=== PATIENT | male | born 1950 | race Caucasian/White ===

== ENCOUNTER 2017-07-10 07:39 | Emergency (ER) | payer BC ==
--- NOTE | 2017-07-10 08:14 | UC ---
[facility] HPI - HPI Summary HPI Summary: 66 yo WM c/o right mmaxillary sinus pain after tooth extraction 4 days ago, states the dentist did not give him any antibiotics, just Tylenol and ibuprofen - History of Current Complaint Chief Complaint: UCDentalProblem Stated Complaint: DENTAL PAIN Time Seen by Provider: 07/10/17 07:59 Hx Obtained From: Patient Onset/Duration: Lasting Days Severity: Moderate Pain Intensity: 2 Aggravating Factor(s): Nothing Alleviating Factor(s): Nothing - Allergies/Home Medications Allergies/Adverse Reactions: Allergies Allergy/AdvReac Type Severity Reaction Status Date / Time No Known Allergies Allergy Verified 07/10/17 07:52 Home Medications: Home Medications Aspirin [Aspirin EC] 81 mg PO DAILY 07/10/17 [History Confirmed 07/10/17] Atorvastatin* [Lipitor 40 MG*] 40 mg PO DAILY 07/10/17 [History Confirmed ] Benazepril HCl 40 mg PO DAILY 07/10/17 [History Confirmed 07/10/17] Cholecalciferol (Vitamin D3) [Vitamin D3] 2,000 unit PO BID 07/10/17 [History Confirmed 07/10/17] Magnesium Oxide [Magnesium] 500 mg PO BID 07/10/17 [History Confirmed 07/10/17] Metoprolol Tartrate TAB* [Lopressor TAB*] 100 mg PO DAILY 07/10/17 [History Confirmed 07/10/17] Omeprazole CAP* [Prilosec CAP* 20 MG] 20 mg PO DAILY 07/10/17 [History Confirmed 07/10/17] amLODIPine TAB* [Norvasc 5 mg TAB*] 10 mg PO DAILY 07/10/17 [History Confirmed 07/10/17] metFORMIN* [Glucophage 500 MG TAB *] 750 mg PO DAILY 07/10/17 [History Confirmed 07/10/17] PMH/Surg Hx/FS Hx/Imm Hx Previously Healthy: Yes - Surgical History Surgical History: Yes - Social History Alcohol Use: None Substance Use Type: None Smoking Status (MU): Never Smoked Tobacco Review of Systems Constitutional: Negative Skin: Negative Eyes: Negative ENT: Dental Pain Respiratory: Negative Cardiovascular: Negative Gastrointestinal: Negative Genitourinary: Negative Motor: Negative Neurovascular: Negative Musculoskeletal: Negative Neurological: Negative Psychological: Negative All Other Systems Reviewed And Are Negative: Yes Physical Exam Triage Information Reviewed: Yes Appearance: Well-Appearing Vital Signs: Initial Vital Signs Temp 36.6 C 07/10/17 07:48 Pulse 78 07/10/17 07:48 Resp 18 07/10/17 07:48 BP 114/76 07/10/17 07:48 Pulse Ox 100 07/10/17 07:48 Eye Exam: Normal ENT Exam: Normal ENT: Positive: Sinus tenderness - TTP in right maxillary sinus, Other - poor dentition, diffuse dental caries, area of tooth #2 extraction healing well, no d /c Dental Exam: Normal Neck exam: Normal Neck: Positive: 1 Respiratory Exam: Normal Cardiovascular Exam: Normal Abdominal Exam: Normal Musculoskeletal Exam: Normal Neurological Exam: Normal Psychological Exam: Normal Skin Exam: Normal Dental Complaint Course/Dx - Course Course Of Treatment: pt has multiple caries, extensive periodontal disease with recent tooth extraction, will cover for insidious occult right maxillary sinus infection with clindamycin and better pain control with percocet. Advised dental f/u shreyas on the abx - Differential Dx/Diagnosis Provider Diagnoses: periodontal abscess. dental caries Discharge - Sign-Out/Discharge Documenting (check all that apply): Discharge - Discharge Plan Condition: Stable Disposition: HOME Prescriptions: Clindamycin HCl 300 mg PO TID 10 Days #30 capsule oxyCODONE/Acetamin 5/325 MG* [Percocet 5/325 TAB*] 1 tab PO Q6H PRN 3 Days #12 tab MDD 4 PRN Reason: Pain Referrals: Josey Bradshaw MD [Primary Care Provider] - Additional Instructions: please follow up with your dentist next week - Billing Disposition and Condition Condition: STABLE Disposition: HOME
== END 2017-07-10 08:10 | disposition home or self-care (01) ==
LOC: UCEAST 07:39
DX: K04.7 Periapical abscess without sinus (principal); K02.9 Dental caries, unspecified; Z79.82 Long term (current) use of aspirin
CPT/HCPCS: 99202; G0463